=== PATIENT | male | born 1950 | race African-American/Black ===

== ENCOUNTER 2016-08-18 12:36 | Observation (INO) | payer OTHER ==
[2016-08-18] MEDS ORDERED: Sodium Chloride 0.9% 2.5 ML Syringe FLUSH PRN (12:47)
[2016-08-18] MEDS ORDERED: Sodium Chloride 0.9% 10 ML Syringe FLUSH PRN (12:47)
[2016-08-18] MEDS ORDERED: Nitroglycerin 2% Oint 1 GM UD Packet TOP ONE ×2 (12:47→15:10)
--- NOTE | 2016-08-18 13:28 | EDM.PDOC ---
ED HPI GENERAL MEDICAL PROBLEM - General Chief Complaint: Cardiovascular Problem Stated Complaint: SHORTNESS OF BREATH Time Seen by Provider: 08/18/16 12:50 Source of Information: Reports: Patient History Limitations: Reports: No Limitations - History of Present Illness INITIAL COMMENTS - FREE TEXT/NARRATIVE: History of present illness: [65-year-old brought in by EMS from the [facility] secondary to hypertension and uncontrolled A. fib. Patient indicates that he has been out of his diuretics and that is his primary problem] Review of systems: As per history of present illness and below otherwise all systems reviewed and negative. Past medical history: As per history of present illness and as reviewed below otherwise noncontributory. Surgical history: As per history of present illness and as reviewed below otherwise noncontributory. Social history: No reported history of drug or alcohol abuse. Family history: As per history of present illness and as reviewed below otherwise noncontributory. Physical exam: HEENT: Atraumatic, normocephalic, pupils reactive, negative for conjunctival pallor or scleral icterus, mucous membranes moist, throat clear, neck supple, nontender, trachea midline. Lungs: Clear to auscultation, breath sounds equal bilaterally, chest nontender. Heart: S1S2, regular, negative for clicks, rubs, or JVD. Abdomen: Obese and protuberant firm abdomen that is nontender. Negative for masses or hepatosplenomegaly. Negative for costovertebral tenderness. Pelvis: Stable nontender. Genitourinary: Deferred. Rectal: Deferred. Extremities: Atraumatic, negative for cords or calf pain. Neurovascular unremarkable. Neuro: Awake, alert, oriented. Cranial nerves II through XII unremarkable. Cerebellum unremarkable. Motor and sensory unremarkable throughout. Exam nonfocal. noted to have some exertional dyspnea but his heart rate and hypertension decreased significantly upon settling into the [facility]. Diagnostics: [CBC, EKG, CMP, troponin,] Therapeutics: [IV lock,] Impression: [Hypertension, tachycardia, CHF] Plan: [Admit] Definitive disposition and diagnosis as appropriate pending reevaluation and review of above. Treatments CLINICAL COURIER: Reports: Oxygen - Related Data Allergies Allergy/AdvReac Type Severity Reaction Status Date / Time No Known Allergies Allergy Verified 08/18/16 12:47 Home Meds: Home Meds Hydrochlorothiazide 25 mg PO DAILY 06/21/16 [History] Cyclobenzaprine [Flexeril] 10 mg PO TID PRN 08/18/16 [History] Nitroglycerin [Nitrostat] 0.4 mg SL Q5M PRN 08/18/16 [History] Omeprazole 20 mg PO ACBREAKFAST 08/18/16 [History] Past Medical History Cardiovascular History: Reports: Afib, CAD, Heart Failure, Hypertension Other Cardiovascular History: 1 stent placed 03/08/16 Respiratory History: Reports: COPD, Sleep Apnea, SOB Other Respiratory History: not on home 02; on home cpap Endocrine/Metabolic History: Reports: Diabetes, Type II - Infectious Disease History Infectious Disease History: Reports: Chicken Pox, Mumps Social & Family History - Family History Family Medical History: Noncontributory - Tobacco Use Smoking Status *Q: Never Smoker Years of Tobacco use: 40 Used Tobacco, but Quit: Yes Month Tobacco Last Used: 4 months ago Second Hand Smoke Exposure: No - Caffeine Use Caffeine Use: Reports: None - Alcohol Use Days Per Week of Alcohol Use: 2 Number of Drinks Per Day: 4 Total Drinks Per Week: 8 - Recreational Drug Use Recreational Drug Use: No ED ROS GENERAL - Review of Systems Review Of Systems: See Below (See history of present illness) ED EXAM, GENERAL - Physical Exam Exam: See Below (See history of present illness) Course - Vital Signs Last Recorded V/S: Last Vital Signs Temp 36.6 C 08/18/16 12:40 Pulse 73 08/18/16 14:52 Resp 24 H 08/18/16 14:30 BP 163/106 H 08/18/16 14:52 Pulse Ox 93 L 08/18/16 14:52 - Orders/Labs/Meds Orders: Active Orders 24 hr Category Date Time Status Cardiac Monitoring [RC] . DIRECTED Care 08/18/16 12:47 Active EKG Documentation Completion [RC] STAT Care 08/18/16 12:46 Active CXR [Chest 2V] [CR] Stat Exams 08/18/16 12:50 Taken Sodium Chloride 0.9% [Saline Flush] Med 08/18/16 12:47 Active 10 ml FLUSH ASDIRECTED PRN Sodium Chloride 0.9% [Saline Flush] Med 08/18/16 12:47 Active 2.5 ml FLUSH ASDIRECTED PRN Saline Lock Insert [OM.PC] Stat Oth 08/18/16 12:46 Ordered Medication Orders Sodium Chloride (Saline Flush) 10 ml FLUSH ASDIRECTED PRN PRN Reason: Keep Vein Open Sodium Chloride (Saline Flush) 2.5 ml FLUSH ASDIRECTED PRN PRN Reason: Keep Vein Open Labs: Laboratory Tests 08/18/16 08/18/16 08/18/16 Range/Units 12:47 12:47 12:47 WBC 10.62 (4.0-11.0) K/uL RBC 4.83 (4.50-5.90) M/uL Hgb 14.7 (13.0-17.0) g/dL Hct 44.8 (38.0-50.0) % MCV 92.8 (80.0-98.0) fL MCH 30.4 (27.0-32.0) pg MCHC 32.8 (31.0-37.0) g/dL RDW Std Deviation 46.8 (28.0-62.0) fl RDW Coeff of Evie 14 (11.0-15.0) % Plt Count 277 (150-400) K/uL MPV 10.20 (7.40-12.00) fL Neut % (Auto) 61.1 (48.0-80.0) % Lymph % (Auto) 30.3 (16.0-40.0) % Boyd % (Auto) 7.7 (0.0-15.0) % Eos % (Auto) 0.7 (0.0-7.0) % Baso % (Auto) 0.2 (0.0-1.5) % Neut # (Auto) 6.5 H (1.4-5.7) K/uL Lymph # (Auto) 3.2 H (0.6-2.4) K/uL Boyd # (Auto) 0.8 (0.0-0.8) K/uL Eos # (Auto) 0.1 (0.0-0.7) K/uL Baso # (Auto) 0.0 (0.0-0.1) K/uL Nucleated RBC % 0.0 /100WBC Nucleated RBCs # 0 K/uL Sodium 144 (136-146) mmol/L Potassium 3.7 (3.5-5.1) mmol/L Chloride 110 (98-110) mmol/L Carbon Dioxide 20 L (21-31) mmol/L BUN 18 (6.0-23.0) mg/dL Creatinine 1.8 H (0.6-1.5) mg/dL Est Cr Clr Drug Dosing 50.20 mL/min Estimated GFR (MDRD) 46.4 ml/min Glucose 90 (60-110) mg/dL Calcium 9.6 (8.8-10.8) mg/dL Total Bilirubin 0.6 (0.1-1.5) mg/dL AST 30 (5-40) IU/L ALT 27 (8-54) IU/L Alkaline Phosphatase 78 (40-150) Troponin I < 0.10 (0.0-0.29) NG/ML B-Natriuretic Peptide (<100) PG/ML Total Protein 8.7 H (6.0-8.0) g/dL Albumin 4.7 (3.4-4.8) g/dL Globulin 4.0 H (2.0-3.5) g/dL Albumin/Globulin Ratio 1.2 L (1.3-2.8) Amylase 70 (10-90) U/L Lipase 42 (7-80) U/L 08/18/16 Range/Units 12:47 WBC (4.0-11.0) K/uL RBC (4.50-5.90) M/uL Hgb (13.0-17.0) g/dL Hct (38.0-50.0) % MCV (80.0-98.0) fL MCH (27.0-32.0) pg MCHC (31.0-37.0) g/dL RDW Std Deviation (28.0-62.0) fl RDW Coeff of Evie (11.0-15.0) % Plt Count (150-400) K/uL MPV (7.40-12.00) fL Neut % (Auto) (48.0-80.0) % Lymph % (Auto) (16.0-40.0) % Boyd % (Auto) (0.0-15.0) % Eos % (Auto) (0.0-7.0) % Baso % (Auto) (0.0-1.5) % Neut # (Auto) (1.4-5.7) K/uL Lymph # (Auto) (0.6-2.4) K/uL Boyd # (Auto) (0.0-0.8) K/uL Eos # (Auto) (0.0-0.7) K/uL Baso # (Auto) (0.0-0.1) K/uL Nucleated RBC % /100WBC Nucleated RBCs # K/uL Sodium (136-146) mmol/L Potassium (3.5-5.1) mmol/L Chloride (98-110) mmol/L Carbon Dioxide (21-31) mmol/L BUN (6.0-23.0) mg/dL Creatinine (0.6-1.5) mg/dL Est Cr Clr Drug Dosing mL/min Estimated GFR (MDRD) ml/min Glucose (60-110) mg/dL Calcium (8.8-10.8) mg/dL Total Bilirubin (0.1-1.5) mg/dL AST (5-40) IU/L ALT (8-54) IU/L Alkaline Phosphatase (40-150) Troponin I (0.0-0.29) NG/ML B-Natriuretic Peptide 445 H (<100) PG/ML Total Protein (6.0-8.0) g/dL Albumin (3.4-4.8) g/dL Globulin (2.0-3.5) g/dL Albumin/Globulin Ratio (1.3-2.8) Amylase (10-90) U/L Lipase (7-80) U/L Meds: Medications Generic Name Dose Route Start Last Admin Trade Name Freq PRN Reason Stop Dose Admin Sodium Chloride 10 ml 08/18/16 12:47 Saline Flush FLUSH ASDIRECTED PRN Keep Vein Open Sodium Chloride 2.5 ml 08/18/16 12:47 Saline Flush FLUSH ASDIRECTED PRN Keep Vein Open Discontinued Medications Generic Name Dose Route Start Last Admin Trade Name Freq PRN Reason Stop Dose Admin Enoxaparin Sodium 150 mg 08/18/16 14:34 08/18/16 15:01 Lovenox SUBCUT 08/18/16 14:35 150 mg ONETIME ONE Administration Furosemide 40 mg 08/18/16 14:32 08/18/16 14:58 Lasix IVPUSH 08/18/16 14:33 40 mg NOW ONE Administration Metoprolol Tartrate 5 mg 08/18/16 14:45 Lopressor IVPUSH 08/18/16 14:56 Q5M DEVAN Nitroglycerin 0.5 gm 08/18/16 12:47 08/18/16 14:39 Nitro-Bid 2% TOP 08/18/16 12:48 Not Given ONETIME ONE Potassium Chloride 40 meq 08/18/16 14:32 08/18/16 14:57 Klor-Con M20 PO 08/18/16 14:33 40 meq ONETIME ONE Administration Departure - Departure Time of Disposition: 15:06 Disposition: Admitted As Inpatient 68 Condition: good Clinical Impression: Hypertensive heart disease, History of - hypertension, HTN, High Blood Pressure Atrial fibrillation Qualifiers: Atrial fibrillation type: chronic Qualified Code(s): I48.2 - Chronic atrial fibrillation Forms: ED Department Discharge - My Orders Last 24 Hours: My Active Orders 08/18/16 12:46 EKG Documentation Completion [RC] STAT Saline Lock Insert [OM.PC] Stat 08/18/16 12:47 Cardiac Monitoring [RC] . DIRECTED Sodium Chloride 0.9% [Saline Flush] 10 ml FLUSH ASDIRECTED PRN Sodium Chloride 0.9% [Saline Flush] 2.5 ml FLUSH ASDIRECTED PRN 08/18/16 12:50 CXR [Chest 2V] [CR] Stat - Assessment/Plan Last 24 Hours: My Active Orders 08/18/16 12:46 EKG Documentation Completion [RC] STAT Saline Lock Insert [OM.PC] Stat 08/18/16 12:47 Cardiac Monitoring [RC] . DIRECTED Sodium Chloride 0.9% [Saline Flush] 10 ml FLUSH ASDIRECTED PRN Sodium Chloride 0.9% [Saline Flush] 2.5 ml FLUSH ASDIRECTED PRN 08/18/16 12:50 CXR [Chest 2V] [CR] Stat
[2016-08-18] MEDS ORDERED: Potassium Chloride 20 MEQ Tab.ER PO ONE (14:32)
[2016-08-18] MEDS ORDERED: Furosemide 40 MG/4 ML VIAL IVPUSH ONE (14:32)
[2016-08-18] MEDS ORDERED: Enoxaparin 150 MG/1 ML Syringe SUBCUT ONE (14:34)
[2016-08-18] MEDS: Metoprolol Tartrate 5 MG/5 ML SDV IVPUSH SCH ×2 (15:03→17:26)
--- NOTE | 2016-08-18 15:13 | CR ---
EXAM DATE: 08/18/16 PATIENT'S AGE: 65 Patient: JAHAIRA BERGER Facility: [place], [place] Site . Site : 1950 Study: XRay Chest [id number]/[id number] 2:18:58 PM Ordering Physician: Doctor Munoz Final Report: INDICATIONS: Shortness of breath. TECHNIQUE: Chest 2 view. COMPARISON: Chest radiograph 09/07/2015. FINDINGS: No pneumothorax, pleural effusion or airspace consolidation. Cardiac and mediastinal contours are stable. No pulmonary edema. Upper abdomen and osseous structures show no acute abnormality. IMPRESSION: No evidence of acute cardiopulmonary disease. Dictated by Dimitri Sanchez MD @ 08/18/2016 2:39:05 PM Dictated by: Dimitri Sanchez MD @ 08/18/2016 14:39:13 (Electronic Signature) Report Signed by Proxy. [facility] SHOREFawad
[2016-08-18] MEDS ORDERED: Nitroglycerin 0.4 MG Tab.SL SL PRN (16:57)
[2016-08-18] MEDS ORDERED: Clobetasol 0.05% Ointment 15 GM Tube TOP PRN (16:57)
[2016-08-18] MEDS ORDERED: Acetaminophen 325 MG Tab PO PRN (17:09)
[2016-08-18] MEDS: Carvedilol 25 MG Tab PO SCH ×2 (17:25→21:37)
[2016-08-18] MEDS: Losartan 50 MG Tab PO SCH (17:25)
[2016-08-18] MEDS: Clopidogrel 75 MG Tab PO SCH (17:25)
[2016-08-18] MEDS: Aspirin 81 MG Tab.EC PO SCH (17:26)
[2016-08-18] MEDS: Furosemide 40 MG/4 ML VIAL IVPUSH SCH ×2 (17:33→21:37)
--- NOTE | 2016-08-18 17:46 | PCM.HP ---
[id number] of Service: 08/18/16 Admit Problem/Dx: AF with RVR Source of Information: Patient History Limitations: Reports: Other (Poor Historian) - History of Present Illness Initial Comments - Free Text/Narative: 65 yo male with history of CAD w Drug Eluding stent, HFrEF, CKD, HTN, COPD, CORINNA , Obesity, Hypercholesterolemia and DM2 was transferred from [facility] due to AF with RVR. Patient is a poor historian. He states that for past week he has been experiencing weakness and sob. He denies having any chest pain. He is unsure if he had palpitations. He is unable to walk mor than 2 blocks without becoming short of breath. He ran out of medictions 2 weeks ago. He sees Dr. Romero , Cardiology in [place] and last saw him early this year. He decided today to go to [place] for the weakness. He was previously in [place] [employer] but has not been out of the [place] in 3 years. He is a prior smoker but quit 2 years. He denies alcohol use. Currently he is doing okay but still having weakness and feeling sob. While in the ED his labs revealed negative Troponin, BNP of 445, BUN 18, Cr 1.8 and GFR 46. He was given Lasix 40 mg IV, Metoprolol 5 mg IV, Lovenox 150 mg SC & KCl 40 meq. Prior to transfer his HR improved to 80-100 but AF persisted. - Related Data Allergies/Adverse Reactions: Allergies Allergy/AdvReac Type Severity Reaction Status Date / Time No Known Allergies Allergy Verified 08/18/16 12:47 Home Medications: Home Meds Albuterol [Proventil HFA] 6.7 gm INH Q6H PRN 08/18/16 [History] Alum Hydrox/Mag Hydrox/Simeth [Mag-Al Plus] 30 ml PO Q8H PRN 08/18/16 [History] Apixaban [Eliquis] 5 mg PO BID 08/18/16 [History] Aspirin [Halfprin] 81 mg PO BRK 08/18/16 [History] Budesonide/Formoterol [Symbicort 80-4.5 MCG] 2 puff INH BID 08/18/16 [History] Carvedilol 50 mg PO BID 08/18/16 [History] Clobetasol [Clobetasol Propionate 0.05%] 30 gm TOP BID PRN 08/18/16 [History] Clopidogrel [Plavix] 75 mg PO DAILY 08/18/16 [History] Cyclobenzaprine [Flexeril] 10 mg PO TID PRN 08/18/16 [History] Cyclobenzaprine [Flexeril] 10 mg PO TID PRN 08/18/16 [History] Furosemide 40 mg PO BID 08/18/16 [History] Hydrochlorothiazide 50 mg PO BID 08/18/16 [History] Losartan [Cozaar] 100 mg PO DAILY 08/18/16 [History] Multivitamin [Daily Ronnie] 1 each PO WITHBREAKFAST 08/18/16 [History] Nitroglycerin [Nitrostat] 0.4 mg SL Q5M PRN 08/18/16 [History] Omeprazole 20 mg PO ACBREAKFAST 08/18/16 [History] Potassium Chloride 20 meq PO DAILY 08/18/16 [History] Simvastatin [Zocor] 20 mg PO BEDTIME 08/18/16 [History] Tamsulosin [Flomax] 0.4 mg PO BEDTIME 08/18/16 [History] metFORMIN HCl [Metformin HCl] 500 mg PO BIDMEALS 08/18/16 [History] Past Medical History Cardiovascular History: Reports: Afib, CAD, Heart Failure, Hypertension Other Cardiovascular History: 1 stent placed 03/08/16 Respiratory History: Reports: COPD, Sleep Apnea, SOB Other Respiratory History: not on home 02; on home cpap Endocrine/Metabolic History: Reports: Diabetes, Type II - Infectious Disease History Infectious Disease History: Reports: Chicken Pox, Mumps Social & Family History - Family History Family Medical History: Noncontributory - Tobacco Use Smoking Status *Q: Former Smoker Years of Tobacco use: 25 Used Tobacco, but Quit: Yes Month Tobacco Last Used: 24 Second Hand Smoke Exposure: No - Caffeine Use Caffeine Use: Reports: None - Alcohol Use Days Per Week of Alcohol Use: 2 Number of Drinks Per Day: 4 Total Drinks Per Week: 8 - Recreational Drug Use Recreational Drug Use: No H&P Review of Systems - Review of Systems: Review Of Systems: See Below General: Reports: Weakness HEENT: Reports: No Symptoms Pulmonary: Reports: Shortness of Breath, Wheezing Cardiovascular: Reports: Dyspnea on Exertion, Edema, Lightheadedness. Denies: Chest Pain, Palpitations, Syncope Gastrointestinal: Reports: No Symptoms Genitourinary: Reports: No Symptoms Musculoskeletal: Reports: No Symptoms Skin: Reports: Dryness Psychiatric: Reports: No Symptoms Neurological: Reports: No Symptoms Hematologic/Lymphatic: Reports: No Symptoms Immunologic: Reports: No Symptoms Exam - Exam Exam: See Below - Vital Signs Vital Signs: Last Vital Signs Temp 36.4 C 08/18/16 15:43 Pulse 84 08/18/16 15:43 Resp 20 08/18/16 15:43 BP 152/88 H 08/18/16 17:25 Pulse Ox 95 08/18/16 15:43 Weight: 147.3 kg - Exam Quality Assessment: Supplemental Oxygen General: Alert, Oriented HEENT: Conjunctiva Clear, EACs Clear, EOMI, Hearing Intact Neck: Supple, +2 Carotid Pulse wo Bruit Lungs: Normal Respiratory Effort, Decreased Breath Sounds, Crackles Cardiovascular: Regular Rate, Irregular Rhythm Abdomen: Normal Bowel Sounds, Soft Back Exam: Normal Inspection Extremities: Normal Inspection Peripheral Pulses: 2+: Dorsalis Pedis (L), Dorsalis Pedis (R) Skin: Warm, Dry, Intact Neurological: Reflexes Equal Bilateral Neuro Extensive - Mental Status: Alert, Oriented x3 - Patient Data Result Diagrams: 08/18/16 12:47 08/18/16 12:47 *Q Meaningful Use (ADM) - VTE *Q VTE Criteria *Q: - Stroke *Q Stroke Criteria *Q: - AMI *Q AMI Criteria *Q: Problem List Initiated/Reviewed/Updated: Yes Orders Last 24hrs: Active Orders 24 hr Category Date Time Status Patient Status [ADT] Routine ADT 08/18/16 17:09 Ordered Blood Glucose Check, Bedside [RC] TIDAC Care 08/18/16 17:09 Ordered Oxygen Therapy [RC] PRN Care 08/18/16 17:09 Ordered RT Aerosol Therapy [RC] ASDIRECTED Care 08/18/16 17:05 Ordered Telemetry Monitoring [Cardiac Monitoring] [RC] . Care 08/18/16 15:20 Active DIRECTED Up ad Monique [RC] ASDIRECTED Care 08/18/16 17:09 Ordered VTE/DVT Education [RC] PER UNIT ROUTINE Care 08/18/16 17:09 Ordered Vital Signs [RC] Q4H Care 08/18/16 17:09 Ordered PT Evaluation and Treatment [CONS] Routine Cons 08/18/16 17:09 Ordered [place] [employer] Diet [DIET] Diet 08/18/16 Breakfast Ordered Echo Comp wo Cont [US] Routine Exams 08/18/16 17:09 Ordered BASIC METABOLIC PANEL,BMP [CHEM] AM Lab 08/19/16 05:11 Ordered BASIC METABOLIC PANEL,BMP [CHEM] AM Lab 08/20/16 05:11 Ordered BASIC METABOLIC PANEL,BMP [CHEM] AM Lab 08/21/16 05:11 Ordered BASIC METABOLIC PANEL,BMP [CHEM] AM Lab 08/22/16 05:11 Ordered CBC WITH AUTO DIFF [HEME] AM Lab 08/19/16 05:11 Ordered CBC WITH AUTO DIFF [HEME] AM Lab 08/20/16 05:11 Ordered CBC WITH AUTO DIFF [HEME] AM Lab 08/21/16 05:11 Ordered Acetaminophen [Tylenol] Med 08/18/16 17:09 Ordered 650 mg PO Q4H PRN Albuterol/Ipratropium [DuoNeb 3.0-0.5 MG/3 ML] Med 08/18/16 18:00 Ordered 3 ml NEB Q4HRRT Apixaban [Eliquis] Med 08/18/16 21:00 Ordered 5 mg PO BID Aspirin [Halfprin] Med 08/18/16 17:00 Ordered 81 mg PO BRK Carvedilol [Coreg] Med 08/18/16 17:00 Ordered 50 mg PO BID Clobetasol Med 08/18/16 16:57 Ordered 30 gm TOP BID PRN Clopidogrel [Plavix] Med 08/18/16 17:00 Ordered 75 mg PO DAILY Furosemide [Lasix] Med 08/18/16 17:15 Ordered 40 mg IVPUSH BID Insulin Aspart [NovoLOG] Med 08/19/16 07:30 Ordered See Protocol SUBCUT TIDAC Losartan Med 08/18/16 17:00 Ordered 100 mg PO DAILY Nitroglycerin [Nitrostat] Med 08/18/16 16:57 Ordered 0.4 mg SL Q5M PRN Omeprazole Med 08/19/16 07:30 Ordered 20 mg PO ACBREAKFAST Simvastatin [Zocor] Med 08/18/16 21:00 Ordered 20 mg PO BEDTIME Resuscitation Status Routine Resus Stat 08/18/16 17:09 Ordered Medication Orders Acetaminophen (Tylenol) 650 mg PO Q4H PRN PRN Reason: Pain (Mild 1-3)/fever Albuterol/Ipratropium (Duoneb 3.0-0.5 Mg/3 Ml) 3 ml NEB Q4HRRT DEVAN Apixaban (Eliquis) 5 mg PO BID DEVAN Aspirin (Halfprin) 81 mg PO BRK DEVAN Carvedilol (Coreg) 50 mg PO BID [facility] Clobetasol Propionate (Temovate 0.05% Oint) 15 gm TOP BID PRN PRN Reason: Rash Clopidogrel Bisulfate (Plavix) 75 mg PO DAILY [facility] Furosemide (Lasix) 40 mg IVPUSH BID [facility] Insulin Aspart (Novolog) 0 unit SUBCUT TIDAC DEVAN PRN Reason: Protocol Losartan Potassium (Cozaar) 100 mg PO DAILY [facility] Last Admin: 08/18/16 17:25 Dose: 100 mg Nitroglycerin (Nitrostat) 0.4 mg SL Q5M PRN PRN Reason: angina Omeprazole (Omeprazole) 20 mg PO ACBREAKFAST DEVAN Simvastatin (Zocor) 20 mg PO BEDTIME [facility] Sodium Chloride (Saline Flush) 10 ml FLUSH ASDIRECTED PRN PRN Reason: Keep Vein Open Sodium Chloride (Saline Flush) 2.5 ml FLUSH ASDIRECTED PRN PRN Reason: Keep Vein Open Assessment/Plan Comment:: Assessment: 1. AF with RVR 2. HTN 3. CAD with Hx of Drug Eluding Stent 4. HFrEF, previous echo from records reveal EF 40% 5. COPD 6. DM Type 2 7. CKD - BUN 18, Cr 1.8, GFR 46 8. Obstructive Sleep Apnea Plan 1. Admit to Observation 2. Telemetry 3. Diabetic Diet 4. obtain HbA1C 5. Hold Metformin 6. start Novolog low dose sliding scale 7. blood glucose monitoring TIDAC 8. Duonebs [id number] 9. resume home meds: ASA, Plavix, Apixiban (resume in AM), Simvastatin, Losartan , Coreg 10. start Lasix 40 mg IV BID 11. start Cardizem 30 mg PO [id number] for sustained HR > 100 12. Echocardiogram 13. consult to Cardiology - Dr. Collins has evaluated patient, Appreciate the rec's 14. order CBC/BMP/Mg in AM 15. DVT prophylaxis: patient given Lovenox in ED, resume Apixiban in AM 16. as per orders <Magdaleno Morocho - Last Filed: 08/19/16 15:57> H&P History of Present Illness - General Admit Problem/Dx: I performed a history and physical examination of the patient and I have discussed his management with the resident. I have reviewed the residents note and agree with the documented findings and plan of care. Exam - Vital Signs Vital Signs: Last Vital Signs Temp 36.6 C 08/19/16 11:00 Pulse 86 08/19/16 11:00 Resp 18 08/19/16 11:00 BP 117/73 08/19/16 11:00 Pulse Ox 95 08/19/16 11:00 - Patient Data Lab Results last 24 hrs: Laboratory Results - last 24 hr 08/18/16 08/18/16 08/19/16 Range/Units 19:43 22:45 01:40 WBC 7.70 (4.0-11.0) K/uL RBC 4.84 (4.50-5.90) M/uL Hgb 14.8 (13.0-17.0) g/dL Hct 45.1 (38.0-50.0) % MCV 93.2 (80.0-98.0) fL MCH 30.6 (27.0-32.0) pg MCHC 32.8 (31.0-37.0) g/dL RDW Std Deviation 46.7 (28.0-62.0) fl RDW Coeff of Evie 14 (11.0-15.0) % Plt Count 246 (150-400) K/uL MPV 9.80 (7.40-12.00) fL Neut % (Auto) 57.0 (48.0-80.0) % Lymph % (Auto) 32.2 (16.0-40.0) % Mineral % (Auto) 9.2 (0.0-15.0) % Eos % (Auto) 1.2 (0.0-7.0) % Baso % (Auto) 0.4 (0.0-1.5) % Neut # (Auto) 4.4 (1.4-5.7) K/uL Lymph # (Auto) 2.5 H (0.6-2.4) K/uL Mineral # (Auto) 0.7 (0.0-0.8) K/uL Eos # (Auto) 0.1 (0.0-0.7) K/uL Baso # (Auto) 0.0 (0.0-0.1) K/uL Nucleated RBC % 0.0 /100WBC Nucleated RBCs # 0 K/uL Sodium (136-146) mmol/L Potassium (3.5-5.1) mmol/L Chloride (98-110) mmol/L Carbon Dioxide (21-31) mmol/L BUN (6.0-23.0) mg/dL Creatinine (0.6-1.5) mg/dL Est Cr Clr Drug Dosing mL/min Estimated GFR (MDRD) ml/min Glucose (60-110) mg/dL POC Glucose 104 (60-110) mg/dL Uric Acid (2.1-7.4) mg/dL Calcium (8.8-10.8) mg/dL Magnesium (1.5-2.3) mEq/L Troponin I < 0.10 (0.0-0.29) NG/ML 08/19/16 08/19/16 08/19/16 Range/Units 01:40 01:40 01:40 WBC (4.0-11.0) K/uL RBC (4.50-5.90) M/uL Hgb (13.0-17.0) g/dL Hct (38.0-50.0) % MCV (80.0-98.0) fL MCH (27.0-32.0) pg MCHC (31.0-37.0) g/dL RDW Std Deviation (28.0-62.0) fl RDW Coeff of Evie (11.0-15.0) % Plt Count (150-400) K/uL MPV (7.40-12.00) fL Neut % (Auto) (48.0-80.0) % Lymph % (Auto) (16.0-40.0) % Mineral % (Auto) (0.0-15.0) % Eos % (Auto) (0.0-7.0) % Baso % (Auto) (0.0-1.5) % Neut # (Auto) (1.4-5.7) K/uL Lymph # (Auto) (0.6-2.4) K/uL Mineral # (Auto) (0.0-0.8) K/uL Eos # (Auto) (0.0-0.7) K/uL Baso # (Auto) (0.0-0.1) K/uL Nucleated RBC % /100WBC Nucleated RBCs # K/uL Sodium 143 (136-146) mmol/L Potassium 3.7 (3.5-5.1) mmol/L Chloride 104 (98-110) mmol/L Carbon Dioxide 24 (21-31) mmol/L BUN 21 (6.0-23.0) mg/dL Creatinine 2.0 H (0.6-1.5) mg/dL Est Cr Clr Drug Dosing 45.43 mL/min Estimated GFR (MDRD) 41.1 ml/min Glucose 120 H (60-110) mg/dL POC Glucose (60-110) mg/dL Uric Acid 14.1 H (2.1-7.4) mg/dL Calcium 9.1 (8.8-10.8) mg/dL Magnesium 1.7 (1.5-2.3) mEq/L Troponin I < 0.10 (0.0-0.29) NG/ML 08/19/16 08/19/16 Range/Units 06:16 12:02 WBC (4.0-11.0) K/uL RBC (4.50-5.90) M/uL Hgb (13.0-17.0) g/dL Hct (38.0-50.0) % MCV (80.0-98.0) fL MCH (27.0-32.0) pg MCHC (31.0-37.0) g/dL RDW Std Deviation (28.0-62.0) fl RDW Coeff of Evie (11.0-15.0) % Plt Count (150-400) K/uL MPV (7.40-12.00) fL Neut % (Auto) (48.0-80.0) % Lymph % (Auto) (16.0-40.0) % Mineral % (Auto) (0.0-15.0) % Eos % (Auto) (0.0-7.0) % Baso % (Auto) (0.0-1.5) % Neut # (Auto) (1.4-5.7) K/uL Lymph # (Auto) (0.6-2.4) K/uL Mineral # (Auto) (0.0-0.8) K/uL Eos # (Auto) (0.0-0.7) K/uL Baso # (Auto) (0.0-0.1) K/uL Nucleated RBC % /100WBC Nucleated RBCs # K/uL Sodium (136-146) mmol/L Potassium (3.5-5.1) mmol/L Chloride (98-110) mmol/L Carbon Dioxide (21-31) mmol/L BUN (6.0-23.0) mg/dL Creatinine (0.6-1.5) mg/dL Est Cr Clr Drug Dosing mL/min Estimated GFR (MDRD) ml/min Glucose (60-110) mg/dL POC Glucose 112 H 110 (60-110) mg/dL Uric Acid (2.1-7.4) mg/dL Calcium (8.8-10.8) mg/dL Magnesium (1.5-2.3) mEq/L Troponin I (0.0-0.29) NG/ML Result Diagrams: 08/19/16 01:40 08/19/16 01:40 *Q Meaningful Use (ADM) - VTE *Q VTE Criteria *Q: - Stroke *Q Stroke Criteria *Q: - AMI *Q AMI Criteria *Q: - Problem List (1) Atrial fibrillation SNOMED Code(s): 82795217 ICD Code: I48.91 - UNSPECIFIED ATRIAL FIBRILLATION Status: Chronic Priority: Medium Qualifiers: Atrial fibrillation type: chronic Qualified Code(s): I48.2 - Chronic atrial fibrillation (2) Hypertensive heart disease SNOMED Code(s): 14543858 ICD Code: I11.9 - HYPERTENSIVE HEART DISEASE WITHOUT HEART FAILURE Status: Chronic Priority: High Qualifiers: Heart failure presence: without heart failure Qualified Code(s): I11.9 - Hypertensive heart disease without heart failure (3) COPD, Mild chronic obstructive pulmonary disease SNOMED Code(s): 511474050 ICD Code: J44.9 - CHRONIC OBSTRUCTIVE PULMONARY DISEASE, UNSPECIFIED Status : Chronic Priority: High (4) Poorly controlled type 2 diabetes mellitus SNOMED Code(s): 26756526, 487579524 ICD Code: E11.65 - TYPE 2 DIABETES MELLITUS WITH HYPERGLYCEMIA Status: Chronic Priority: Medium (5) Hyperuricemia SNOMED Code(s): 06044146 ICD Code: E79.0 - HYPERURICEMIA W/O SIGNS OF INFLAM ARTHRIT AND TOPHACEOUS DIS Status: Chronic Priority: Medium (6) Gout SNOMED Code(s): 39042913 ICD Code: M10.9 - GOUT, UNSPECIFIED Status: Chronic Priority: Medium Qualifiers: Gout site: foot Encounter type: subsequent encounter Chronicity: chronic Laterality: right Presence of tophus: without tophus Orders Last 24hrs: Active Orders 24 hr Category Date Time Status Patient Status [ADT] Routine ADT 08/18/16 17:09 Active Blood Glucose Check, Bedside [RC] TIDAC Care 08/18/16 17:09 Active Communication Order [RC] ROUTINE Care 08/18/16 19:33 Active Oxygen Therapy [RC] PRN Care 08/18/16 17:09 Active RT Aerosol Therapy [RC] ASDIRECTED Care 08/18/16 17:05 Active Ready for Discharge [RC] PER UNIT ROUTINE Care 08/19/16 14:09 Active Telemetry Monitoring [Cardiac Monitoring] [RC] . Care 08/18/16 15:20 Active DIRECTED Up ad Monique [RC] ASDIRECTED Care 08/18/16 17:09 Active VTE/DVT Education [RC] PER UNIT ROUTINE Care 08/18/16 17:09 Active Vital Signs [RC] Q4H Care 08/18/16 17:09 Active PT Evaluation and Treatment [CONS] Routine Cons 08/18/16 17:09 Active Echo Comp wo Cont [US] Routine Exams 08/18/16 17:09 Ordered Resuscitation Status Routine Resus Stat 08/18/16 17:09 Ordered
[2016-08-18] MEDS: Albuterol/Ipratropium 3.0-0.5 MG/3 ML Neb Soln NEB SCH ×2 (18:52→21:37)
[2016-08-18] MEDS ORDERED: Simvastatin 20 MG Tab PO SCH (21:00)
[2016-08-18] MEDS: Apixaban 2.5 MG Tab PO SCH (21:37)
--- NOTE | 2016-08-19 00:25 | CONS ---
DATE OF CONSULTATION: DATE OF : 1950 PRIMARY CARE PHYSICIAN: Unknown PCP REASON FOR CONSULTATION: Atrial fibrillation RVR heart failure. HISTORY OF PRESENT ILLNESS: This is a 65-year-old male, history of hypertension, CAD status post LAD PCI in February 2016, COPD, history of heart failure, cardiomyopathy, ejection fraction 40% in February presented to the hospital at this time due to shortness of breath, weakness, and heart raising. He has been seen by Dr. Perea, geophysical laboratory supervisor for his cardiac condition and, however, lately he stated that he had been over the Plavix as well as Lasix for eight days. Otherwise, the other medication he has been compliant. He also is noncompliant to diet, he still eats salty foods sometimes and over the past week, he starts being short of breath even at rest. He stated that today he was getting worse. He gets shortness of breath even talking. He feels like the weakness, but he is not sure is a pressure or just the weakness on his chest, but he could not say it is the chest pressure, it is very light and he also feels like his leg is more swollen. However he stated that his weight has been stable at 320s to 330s and also he noted that his heart rate will be raising when he walks, he noted that by checking his pulses. He also had a history of sleep apnea as well. No side effects from bleeding. He is supposed to be on aspirin and Plavix and apixaban and the Plavix, he would need for a year. REVIEW OF SYSTEMS: A 12-point review of system has been negative except as indicated in HPI. ALLERGIES: No known drug allergies. CURRENT MEDICATION: Include, apixaban 5 mg twice a day, aspirin 81 mg once a day, Coreg noted to be 50 mg twice a day by Dr. Perea and Plavix 75 mg once a day and Lasix 40 mg twice a day, hydrochlorothiazide 50 mg once a day, Cozaar 100 mg once a day, metformin 1 g twice a day, and simvastatin 20 mg once a day. In the emergency room, he was found to have a tachycardia with a heart rate of 110-120 and he was given Lasix 40 mg IV push as well as metoprolol 5 IV push, and the heart rate has been better. PAST MEDICAL HISTORY: Including hypertension, CAD status post LAD stent, and COPD. FAMILY HISTORY: Noncontributory. SOCIAL HISTORY: He denied drug use, alcohol use, or smoking. PHYSICAL EXAMINATION: VITAL SIGNS: Blood pressure was holding, it was elevated at 175/123 by coming down to 152/88, and the heart rate was 114-120, it is coming down to 80 to 90s, and O2 saturation is 96 on 2 L. His weight is 324 pounds, respiration rate is 20, temperature 36.6. HEENT: Not pale. Mouth: Dry. Mildly elevated JVD. HEART: Totally irregular. No murmur. LUNGS: Crackles bilaterally. ABDOMEN: Soft, nontender. Bowel sounds present. No hepatosplenomegaly. Nontender. EXTREMITIES: Very trace edema. LABORATORY DATA: CBC showed WBC 10, hematocrit 44, hemoglobin 14, platelet 277, sodium 144, potassium 3.7, chloride 110, bicarb 20, BUN 18, creatinine 1.8 and BNP 445. Troponin was negative. EKG on September 10, 2015 did show atrial fibrillation, heart rate of 106, QRS duration is 98, QTc 412. Echocardiogram in September 2015 showed ejection fraction of 40%, mild MR, mild to moderate AR. An exercise nuclear show heterogeneous uptake throughout the left ventricle, most notable in the inferior and lateral wall, ejection fraction is 35%. Cardiac catheterization, LAD stenosis 99% and RCA as well as LCA seemed to be patent. ASSESSMENT AND PLAN: This is a 65-year-old male, history of permanent atrial fibrillation on anticoagulation as well as CAD status post LAD PCI on triple anticoagulation therapy including aspirin, Plavix, and apixaban for his atrial fibrillation, history of hypertension, COPD, history of heart failure, cardiomyopathy, presented to the hospital with congestive heart failure with atrial fibrillation RVR. I would resume all the medication for his atrial fibrillation RVR and even though his Coreg seemed to be more than maximum dose, but has been started by his geophysical laboratory supervisor and I would use the Cardizem as needed for the heart rate control and I will resume all the Plavix, apixaban and Plavix needs to be continued before at least a year for his drug-eluting stent until February 2017. He denied any side effects of bleeding so far and I will give him also Lasix 40 twice a day IV and reassess in the morning. Probably, we can stop his hydrochlorothiazide because he is going to be on the Lasix and I will also recommend to repeat the echocardiogram as well as cycle cardiac enzymes. KELECHI / OMID /[id number]
[2016-08-19] MEDS: Albuterol/Ipratropium 3.0-0.5 MG/3 ML Neb Soln NEB SCH ×4 (02:56→13:45)
[2016-08-19] MEDS: Insulin Aspart 100 Units/ML 3 ML Pen SUBCUT SCH ×2 (06:40→12:00)
[2016-08-19] MEDS ORDERED: Omeprazole 20 MG Cap.CR PO SCH (07:30)
[2016-08-19] MEDS: Aspirin 81 MG Tab.EC PO SCH (08:17)
[2016-08-19] MEDS: Losartan 50 MG Tab PO SCH (08:17)
[2016-08-19] MEDS: Clopidogrel 75 MG Tab PO SCH (08:17)
[2016-08-19] MEDS: Carvedilol 25 MG Tab PO SCH (08:18)
[2016-08-19] MEDS: Apixaban 2.5 MG Tab PO SCH (08:18)
[2016-08-19] MEDS: Furosemide 40 MG/4 ML VIAL IVPUSH SCH (08:19)
[2016-08-19 12:18] VITALS: BP 117/73
[2016-08-19] MEDS ORDERED: Furosemide 80 MG Tab PO SCH (14:00)
[2016-08-19] MEDS ORDERED: Cyclobenzaprine 10 MG Tab PO PRN (14:09)
[2016-08-19] MEDS ORDERED: Albuterol 8 GM Inhaler INH PRN ×2 (14:09→14:14)
[2016-08-19] MEDS ORDERED: Aluminum Hydroxide/Magnesium Hydroxide/Simethicone Susp 30 ML Cup PO PRN (14:09)
[2016-08-19] MEDS ORDERED: Furosemide 40 MG/4 ML VIAL IVPUSH PRN (15:00)
--- NOTE | 2016-08-19 15:48 | PCM.DCSUM1 ---
Discharge Summary - Discharge Data Discharge Date: 08/19/16 Discharge Disposition: Home, Self-Care 01 Condition: Good - Discharge Diagnosis/Problem(s) (1) Atrial fibrillation SNOMED Code(s): 90958295 ICD Code: I48.91 - UNSPECIFIED ATRIAL FIBRILLATION Status: Chronic Priority: Medium Current Visit: Yes Qualifiers: Atrial fibrillation type: chronic Qualified Code(s): I48.2 - Chronic atrial fibrillation (2) Hypertensive heart disease SNOMED Code(s): 51461865 ICD Code: I11.9 - HYPERTENSIVE HEART DISEASE WITHOUT HEART FAILURE Status: Chronic Priority: High Current Visit: Yes Qualifiers: Heart failure presence: without heart failure Qualified Code(s): I11.9 - Hypertensive heart disease without heart failure (3) COPD, Mild chronic obstructive pulmonary disease SNOMED Code(s): 407643830 ICD Code: J44.9 - CHRONIC OBSTRUCTIVE PULMONARY DISEASE, UNSPECIFIED Status : Chronic Priority: High Current Visit: No (4) Poorly controlled type 2 diabetes mellitus SNOMED Code(s): 28430465, 980467274 ICD Code: E11.65 - TYPE 2 DIABETES MELLITUS WITH HYPERGLYCEMIA Status: Chronic Priority: Medium Current Visit: Yes (5) Hyperuricemia SNOMED Code(s): 41945442 ICD Code: E79.0 - HYPERURICEMIA W/O SIGNS OF INFLAM ARTHRIT AND TOPHACEOUS DIS Status: Chronic Priority: Medium Current Visit: Yes (6) Gout SNOMED Code(s): 83360434 ICD Code: M10.9 - GOUT, UNSPECIFIED Status: Chronic Priority: Medium Current Visit: Yes Qualifiers: Gout site: foot Encounter type: subsequent encounter Chronicity: chronic Laterality: right Presence of tophus: without tophus - Patient Summary/Data Consults: Consultations 08/18/16 17:09 PT Evaluation and Treatment [CONS] Routine Hospital Course: Aug 19, 2016: The patient is a 65-year-old gentleman who is admitted through the emergency department secondary to atrial fibrillation with rapid ventricular response rate. The patient was reportedly downtown and had stopped in the [facility] secondary to shortness of breath, diaphoresis and rapid heart rate. The patient knows what is happening with his body as he has been without his medications for at least 4 days. Patient also says he has had some fluid buildup. The patient was evaluated by cardiology and he was diuresed. The patient also had been complaining of pain in his right foot consistent with gout. Uric acid level does show 14.1 mg/dL. The patient does have an ample supply of his medications and is currently aware that he needs to be compliant with his medications in order to keep him out of the hospital. The patient has been in atrial fibrillation for many years and the mcdaniel issue is his rate control. I've discussed the case with cardiology and with diuresis for today the patient should be appropriate for discharge home. The patient is also to continue his medications as prescribed. He is to have the low-fat, diabetic diet as tolerated. The patient has been recommended to followup closely with the [facility] or a primary care physician as advised. The patient says that he is appropriate for discharge and has been recommended that he continue with his diuretics as well as his antihypertensives. He is to have activity as tolerated. Patient's vital signs are stable. - Patient Instructions Diet: Diabetic Diet Notify Provider of: Fever, Increased Pain - Discharge Plan Home Medications: Home Meds Albuterol [Proventil HFA] 6.7 gm INH Q6H PRN 08/18/16 [History] Alum Hydrox/Mag Hydrox/Simeth [Mag-Al Plus] 30 ml PO Q8H PRN 08/18/16 [History] Apixaban [Eliquis] 5 mg PO BID 08/18/16 [History] Aspirin [Halfprin] 81 mg PO BRK 08/18/16 [History] Budesonide/Formoterol [Symbicort 80-4.5 MCG] 2 puff INH BID 08/18/16 [History] Carvedilol 50 mg PO BID 08/18/16 [History] Clobetasol [Clobetasol Propionate 0.05%] 30 gm TOP BID PRN 08/18/16 [History] Clopidogrel [Plavix] 75 mg PO DAILY 08/18/16 [History] Cyclobenzaprine [Flexeril] 10 mg PO TID PRN 08/18/16 [History] Cyclobenzaprine [Flexeril] 10 mg PO TID PRN 08/18/16 [History] Furosemide 40 mg PO BID 08/18/16 [History] Hydrochlorothiazide 50 mg PO BID 08/18/16 [History] Losartan [Cozaar] 100 mg PO DAILY 08/18/16 [History] Multivitamin [Daily Ronnie] 1 each PO WITHBREAKFAST 08/18/16 [History] Nitroglycerin [Nitrostat] 0.4 mg SL Q5M PRN 08/18/16 [History] Omeprazole 20 mg PO ACBREAKFAST 08/18/16 [History] Potassium Chloride 20 meq PO DAILY 08/18/16 [History] Simvastatin [Zocor] 20 mg PO BEDTIME 08/18/16 [History] Tamsulosin [Flomax] 0.4 mg PO BEDTIME 08/18/16 [History] metFORMIN HCl [Metformin HCl] 500 mg PO BIDMEALS 08/18/16 [History] Patient Handouts: Atrial Fibrillation, [id number] Forms: ED Department Discharge Referrals: PCP,Unknown [Primary Care Provider] - - Discharge Summary/Plan Comment DC Time >30 min.: Yes - Patient Data Vitals - Most Recent: Last Vital Signs Temp 36.6 C 08/19/16 11:00 Pulse 86 08/19/16 11:00 Resp 18 08/19/16 11:00 BP 117/73 08/19/16 11:00 Pulse Ox 95 08/19/16 11:00 Weight - Most Recent: 144.6 kg I&O - Last 24 hours: Intake & Output 08/19/16 08/19/16 08/19/16 06:59 14:59 22:59 Intake Total 500 Output Total 3500 Balance -3000 Lab Results - Last 24 hrs: Laboratory Results - last 24 hr 08/18/16 08/18/16 08/19/16 Range/Units 19:43 22:45 01:40 WBC 7.70 (4.0-11.0) K/uL RBC 4.84 (4.50-5.90) M/uL Hgb 14.8 (13.0-17.0) g/dL Hct 45.1 (38.0-50.0) % MCV 93.2 (80.0-98.0) fL MCH 30.6 (27.0-32.0) pg MCHC 32.8 (31.0-37.0) g/dL RDW Std Deviation 46.7 (28.0-62.0) fl RDW Coeff of Evie 14 (11.0-15.0) % Plt Count 246 (150-400) K/uL MPV 9.80 (7.40-12.00) fL Neut % (Auto) 57.0 (48.0-80.0) % Lymph % (Auto) 32.2 (16.0-40.0) % Mcdowell % (Auto) 9.2 (0.0-15.0) % Eos % (Auto) 1.2 (0.0-7.0) % Baso % (Auto) 0.4 (0.0-1.5) % Neut # (Auto) 4.4 (1.4-5.7) K/uL Lymph # (Auto) 2.5 H (0.6-2.4) K/uL Mcdowell # (Auto) 0.7 (0.0-0.8) K/uL Eos # (Auto) 0.1 (0.0-0.7) K/uL Baso # (Auto) 0.0 (0.0-0.1) K/uL Nucleated RBC % 0.0 /100WBC Nucleated RBCs # 0 K/uL Sodium (136-146) mmol/L Potassium (3.5-5.1) mmol/L Chloride (98-110) mmol/L Carbon Dioxide (21-31) mmol/L BUN (6.0-23.0) mg/dL Creatinine (0.6-1.5) mg/dL Est Cr Clr Drug Dosing mL/min Estimated GFR (MDRD) ml/min Glucose (60-110) mg/dL POC Glucose 104 (60-110) mg/dL Uric Acid (2.1-7.4) mg/dL Calcium (8.8-10.8) mg/dL Magnesium (1.5-2.3) mEq/L Troponin I < 0.10 (0.0-0.29) NG/ML 08/19/16 08/19/16 08/19/16 Range/Units 01:40 01:40 01:40 WBC (4.0-11.0) K/uL RBC (4.50-5.90) M/uL Hgb (13.0-17.0) g/dL Hct (38.0-50.0) % MCV (80.0-98.0) fL MCH (27.0-32.0) pg MCHC (31.0-37.0) g/dL RDW Std Deviation (28.0-62.0) fl RDW Coeff of Evie (11.0-15.0) % Plt Count (150-400) K/uL MPV (7.40-12.00) fL Neut % (Auto) (48.0-80.0) % Lymph % (Auto) (16.0-40.0) % Mcdowell % (Auto) (0.0-15.0) % Eos % (Auto) (0.0-7.0) % Baso % (Auto) (0.0-1.5) % Neut # (Auto) (1.4-5.7) K/uL Lymph # (Auto) (0.6-2.4) K/uL Mcdowell # (Auto) (0.0-0.8) K/uL Eos # (Auto) (0.0-0.7) K/uL Baso # (Auto) (0.0-0.1) K/uL Nucleated RBC % /100WBC Nucleated RBCs # K/uL Sodium 143 (136-146) mmol/L Potassium 3.7 (3.5-5.1) mmol/L Chloride 104 (98-110) mmol/L Carbon Dioxide 24 (21-31) mmol/L BUN 21 (6.0-23.0) mg/dL Creatinine 2.0 H (0.6-1.5) mg/dL Est Cr Clr Drug Dosing 45.43 mL/min Estimated GFR (MDRD) 41.1 ml/min Glucose 120 H (60-110) mg/dL POC Glucose (60-110) mg/dL Uric Acid 14.1 H (2.1-7.4) mg/dL Calcium 9.1 (8.8-10.8) mg/dL Magnesium 1.7 (1.5-2.3) mEq/L Troponin I < 0.10 (0.0-0.29) NG/ML 08/19/16 08/19/16 Range/Units 06:16 12:02 WBC (4.0-11.0) K/uL RBC (4.50-5.90) M/uL Hgb (13.0-17.0) g/dL Hct (38.0-50.0) % MCV (80.0-98.0) fL MCH (27.0-32.0) pg MCHC (31.0-37.0) g/dL RDW Std Deviation (28.0-62.0) fl RDW Coeff of Evie (11.0-15.0) % Plt Count (150-400) K/uL MPV (7.40-12.00) fL Neut % (Auto) (48.0-80.0) % Lymph % (Auto) (16.0-40.0) % Mcdowell % (Auto) (0.0-15.0) % Eos % (Auto) (0.0-7.0) % Baso % (Auto) (0.0-1.5) % Neut # (Auto) (1.4-5.7) K/uL Lymph # (Auto) (0.6-2.4) K/uL Mcdowell # (Auto) (0.0-0.8) K/uL Eos # (Auto) (0.0-0.7) K/uL Baso # (Auto) (0.0-0.1) K/uL Nucleated RBC % /100WBC Nucleated RBCs # K/uL Sodium (136-146) mmol/L Potassium (3.5-5.1) mmol/L Chloride (98-110) mmol/L Carbon Dioxide (21-31) mmol/L BUN (6.0-23.0) mg/dL Creatinine (0.6-1.5) mg/dL Est Cr Clr Drug Dosing mL/min Estimated GFR (MDRD) ml/min Glucose (60-110) mg/dL POC Glucose 112 H 110 (60-110) mg/dL Uric Acid (2.1-7.4) mg/dL Calcium (8.8-10.8) mg/dL Magnesium (1.5-2.3) mEq/L Troponin I (0.0-0.29) NG/ML Med Orders - Current: Current Medications Acetaminophen (Tylenol) 650 mg PO Q4H PRN PRN Reason: Pain (Mild 1-3)/fever Al Hydroxide/Mg Hydroxide (Mag-Al Plus) 30 ml PO Q8HR PRN PRN Reason: stomach Albuterol (Ventolin Hfa) 8 gm INH Q6HR PRN PRN Reason: breathing Albuterol/Ipratropium (Duoneb 3.0-0.5 Mg/3 Ml) 3 ml NEB Q4HRRT [facility] Last Admin: 08/19/16 13:45 Dose: 3 ml Apixaban (Eliquis) 5 mg PO BID [facility] Last Admin: 08/19/16 08:18 Dose: 5 mg Aspirin (Halfprin) 81 mg PO BRK [facility] Last Admin: 08/19/16 08:17 Dose: 81 mg Carvedilol (Coreg) 50 mg PO BID [facility] Last Admin: 08/19/16 08:18 Dose: 50 mg Clobetasol Propionate (Temovate 0.05% Oint) 15 gm TOP BID PRN PRN Reason: Rash Clopidogrel Bisulfate (Plavix) 75 mg PO DAILY [facility] Last Admin: 08/19/16 08:17 Dose: 75 mg Cyclobenzaprine HCl (Flexeril) 10 mg PO TID PRN PRN Reason: muscle spasms Diltiazem HCl (Cardizem) 30 mg PO Q6HR PRN PRN Reason: sustained HR>100 Furosemide (Lasix) 40 mg IVPUSH DAILY PRN PRN Reason: PRIOR TO DISCHARGE Last Admin: 08/19/16 14:26 Dose: 40 mg Hydrochlorothiazide (Hydrochlorothiazide) 50 mg PO BID [facility] Insulin Aspart (Novolog) 0 unit SUBCUT TIDAC [facility] PRN Reason: Protocol Last Admin: 08/19/16 12:00 Dose: Not Given Losartan Potassium (Cozaar) 100 mg PO DAILY [facility] Last Admin: 08/19/16 08:17 Dose: 100 mg Metformin HCl (Glucophage) 500 mg PO BIDMEALS [facility] Multivitamins/Minerals/Vitamin C (Tab-A-Ronnie) 1 tab PO WITHBREAKFAST [facility] Nitroglycerin (Nitrostat) 0.4 mg SL Q5M PRN PRN Reason: angina Omeprazole (Omeprazole) 20 mg PO ACBREAKFAST [facility] Last Admin: 08/19/16 06:54 Dose: 20 mg Potassium Chloride (Klor-Con M20) 20 meq PO DAILY [facility] Simvastatin (Zocor) 20 mg PO BEDTIME [facility] Last Admin: 08/18/16 21:37 Dose: 20 mg Sodium Chloride (Saline Flush) 10 ml FLUSH ASDIRECTED PRN PRN Reason: Keep Vein Open Sodium Chloride (Saline Flush) 2.5 ml FLUSH ASDIRECTED PRN PRN Reason: Keep Vein Open Tamsulosin HCl (Flomax) 0.4 mg PO BEDTIME DEVAN Discontinued Medications Albuterol (Ventolin Hfa) 6.7 gm INH Q6HR PRN PRN Reason: breathing Enoxaparin Sodium (Lovenox) 150 mg SUBCUT ONETIME ONE Stop: 08/18/16 14:35 Last Admin: 08/18/16 15:01 Dose: 150 mg Furosemide (Lasix) 40 mg IVPUSH NOW ONE Stop: 08/18/16 14:33 Last Admin: 08/18/16 14:58 Dose: 40 mg Furosemide (Lasix) 40 mg IVPUSH BID [facility]AN Last Admin: 08/19/16 08:19 Dose: 40 mg Furosemide (Lasix) 40 mg PO BIDDIURETIC [facility]AN Metoprolol Tartrate (Lopressor) 5 mg IVPUSH Q5M [facility]AN Stop: 08/18/16 14:56 Last Admin: 08/18/16 17:26 Dose: Not Given Nitroglycerin (Nitro-Bid 2%) 0.5 gm TOP ONETIME ONE Stop: 08/18/16 12:48 Last Admin: 08/18/16 14:39 Dose: Not Given Nitroglycerin (Nitro-Bid 2%) 0.5 gm TOP ONETIME ONE Stop: 08/18/16 15:11 Last Admin: 08/18/16 15:12 Dose: 0.5 gm Potassium Chloride (Klor-Con M20) 40 meq PO ONETIME ONE Stop: 08/18/16 14:33 Last Admin: 08/18/16 14:57 Dose: 40 meq *Q Meaningful Use (DIS) - VTE *Q VTE Criteria *Q: - Stroke *Q Stroke Criteria *Q: - AMI *Q AMI Criteria *Q:
[2016-08-19] MEDS ORDERED: metFORMIN 500 MG Tab PO SCH (17:00)
[2016-08-19] MEDS ORDERED: Tamsulosin 0.4 MG Cap.ER PO SCH (21:00)
[2016-08-19] MEDS ORDERED: Hydrochlorothiazide 25 MG Tab PO SCH (21:00)
[2016-08-20] MEDS ORDERED: Multivitamin Tab PO SCH (08:00)
[2016-08-20] MEDS ORDERED: Potassium Chloride 20 MEQ Tab.ER PO SCH (09:00)
== END 2016-08-19 15:45 | disposition home or self-care (01) ==
LOC: MW.ED 12:36 → MW.MS 15:17
PROVIDERS: ADMIT Internal Medicine; ATTEND Internal Medicine
DX: I48.91 Unspecified atrial fibrillation (principal); J44.9 Chronic obstructive pulmonary disease, unspecified; E11.65 Type 2 diabetes mellitus with hyperglycemia; E79.0 Hyperuricemia without signs of inflammatory arthritis and tophaceous disease; M10.9 Gout, unspecified; I13.0 Hypertensive heart and chronic kidney disease with heart failure and stage 1 through stage 4 chronic kidney disease, or unspecified chronic kidney disease; E11.22 Type 2 diabetes mellitus with diabetic chronic kidney disease; N18.9 Chronic kidney disease, unspecified; I50.9 Heart failure, unspecified; I25.10 Atherosclerotic heart disease of native coronary artery without angina pectoris; G47.33 Obstructive sleep apnea (adult) (pediatric); E78.00 Pure hypercholesterolemia, unspecified; I42.9 Cardiomyopathy, unspecified; Z87.891 Personal history of nicotine dependence; Z99.89 Dependence on other enabling machines and devices; Z79.02 Long term (current) use of antithrombotics/antiplatelets; Z79.82 Long term (current) use of aspirin; Z79.51 Long term (current) use of inhaled steroids; Z79.84 Long term (current) use of oral hypoglycemic drugs; Z79.899 Other long term (current) drug therapy; Z95.5 Presence of coronary angioplasty implant and graft
CPT/HCPCS: 36415; 71020; 80048; 80053; 82150; 82962; 83690; 83735; 83880; 84484; 84550; 85025; 93005; 94640; 94664; 96372; 96374; 96375; 96376; 97161; 99285; A9270; G0378; J1650; J1940